=== PATIENT | female | born 1995 | race Caucasian/White ===

== ENCOUNTER → 2017-05-30 | Outpatient (CLI) | payer OTHER ==
[~2017-05-30] MED LIST: BCPILLS PO; BUSP5TAB59 PO; FLV1 PO; LXP/20 PO; MISCCAP80 PO; SULF500T36 PO
[2017-05-30 13:12] LABS: EOS % 1.2 %; EOS ABS # 0.04 K/uL (0-0.5); HEMATOCRIT 36.1 % (37-47); HEMOGLOBIN 12.7 g/dL (12.0-16.0); LYMPH % 45.1 %; LYMPH ABS # 1.52 K/uL (1.2-3.4); MEAN CELL VOLUME 92.3 fL (80-100); MEAN CORPUSCULAR HEMOGLOBIN 32.5 pg (25-34); MEAN CORPUSCULAR HGB CONC 35.2 g/dl (32-36); MEAN PLATELET VOLUME 9.3 fL (7.4-10.4); MONO % 7.4 %; MONO ABS # 0.25 K/uL (0.11-0.59); NEUT % 46.3 %; NEUT ABS # 1.56 K/uL (1.4-6.5); PLATELET COUNT 311 K/uL (130-400); RED CELL DISTRIBUTION WIDTH CV 12.6 % (11.5-14.5); RED CELL DISTRIBUTION WIDTH SD 42.1 fL (36.4-46.3); WHITE BLOOD COUNT 3.37 K/uL (4.8-10.8)
[2017-05-30 13:33] LABS: MONOSPOT NEG (NEG)
[2017-06-03 12:32] LABS: MICROSOMAL AB <1 IU/ML (<9)
== END | disposition home or self-care (01) ==
LOC: C.LAB 11:42
PROVIDERS: ATTEND Chiropractor
DX: Z79.1 Long term (current) use of non-steroidal anti-inflammatories (NSAID) (principal)

== ENCOUNTER 2024-05-18 20:25 | Inpatient (IN) ==
[2024-05-18] MEDS ORDERED: OXYTOCIN 30 UNITS/NSS 30 UNITS/500 ML BAG IV PRN (21:03)
[2024-05-18] MEDS ORDERED: LIDOCAINE 1% LOCAL 20 ML VIAL INFIL PRN (21:03)
[2024-05-18] MEDS: LACTATED RINGER'S 1,000 ML IV PRN (21:22)
[2024-05-18 21:28] LABS: Hematocrit (blood only) 35.5 % (37.0-47.0); Hemoglobin 12.6 g/dl (12.0-16.0); Mean Corpuscular Hemoglobin 33.3 pg (25.0-34.0); Mean Corpuscular Hgb Conc 35.5 g/dL (32.0-36.0); Mean Corpuscular Volume 93.9 fL (80.0-100.0); Mean Platelet Volume 10.7 fL (9.4-12.4); Platelet Count 205 K/uL (130-400); RDW Coefficient of Variation 14.2 % (11.5-14.5); RDW Standard Deviation 48.5 fL (36.4-46.3); Red Blood Count 3.78 M/uL (4.20-5.40); White Blood Count 9.22 K/ul (4.8-10.8)
--- NOTE | 2024-05-18 21:57 | Anesthesiology Consultation ---
Date of Service May 18, 2024 Assessment & Plan Chart Review Chart Review: Patient NOT seen in Pre Admission Testing and Acceptable Risk for Labor Epidural Consults Requested none ASA ASA2 Proposed Anesthesia Anesthesia Type: Labor Epidural Risk / Benefits Reviewed With: PT / POA / Parent / Guardian, Accepts Plan and Informed Consent Obtained History Height/Weight Height: 5 ft 8 in Weight: 81.193 kg Allergies Allergy/AdvReac Type Severity Reaction Status Date / Time No Known Allergies Allergy Verified 05/13/24 10:34 Medications Home Medications Medication Instructions Recorded Confirmed Last Taken escitalopram oxalate 20 mg tablet 10 mg PO DAILY 10/21/23 05/18/24 05/18/24 (Lexapro) [id number] PO 10/21/23 05/13/24 05/18/24 [ Plus] Active Medications Generic Name Dose Route Start Last Admin Trade Name Freq PRN Reason Stop Dose Admin Lactated Ringer's 1,000 mls @ 125 mls/hr 05/18/24 21:03 05/18/24 21:22 Lr IV 05/19/24 21:02 999 mls/hr .Q8H PRN Administration L&D Protocol Protocol NPO Date Last Intake of Fluids: 05/18/24 Time Last Intake of Fluids: 21:45 Date Last Intake of Solids: 05/18/24 Time Last Intake of Solids: 17:30 Past Medical History Medical History B12 deficiency Elevated ferritin level Varicella vaccination Depression Bleeding in early Irregular periods Fertility testing Oligomenorrhea Anxiety Ankylosing spondylitis Exercise / Class Metabolic Activity 1 > 8 Run/Swim/Ski/Tennis Past Family History Family History Father FH: malignant neoplasm of testis Grandfather (Maternal) No problems noted. Grandfather (Paternal) Colorectal cancer Grandmother (Paternal) Colorectal cancer Lung cancer Esophageal cancer Father Colon polyp, hyperplastic, Onset Age: 40 precancerous Denies family history of Ovarian cancer Breast cancer Past Surgical History Surgical History H/O wisdom tooth extraction Past Anesthesia History No Hx of Anesthesia Complications and No Family Hx of Anesthesia Complications History of PONV No Hx of PONV and No Hx of Motion Sickness Social History Smoking Status: Never smoker Do You Dip or Chew Tobacco: No Hx Alcohol Use: No Hx Substance Use: No Review of Systems ROS Unobtainable: All systems reviewed & are unremarkable except as noted in HPI & below Allergy / Immunological: no dyspnea Physical Exam Vital Signs Last Vital Signs Temp 36.7 C 05/18/24 20:55 Pulse 75 05/18/24 20:55 Resp 18 05/18/24 20:55 BP 130/79 05/18/24 20:55 ENMT Mouth: no TMJ abnormality Thyromental Distance: > or= 3.5 Finger Breadths Mallampati Class: II Neck normal visual inspection and trachea midline; neck extension not limited Respiratory normal respiratory effort Auscultation: lungs clear to auscultation bilaterally Cardiovascular Rate/Rhythm: regular rate and regular rhythm Heart Sounds: no murmur Musculoskeletal Spine: normal cervical ROM Extremities: full ROM of extremities Neurologic moves all extremities Psychiatric Orientation: alert and oriented x 3 Testing Laboratory Results 05/18/24 21:13
[2024-05-18] MEDS ORDERED: NALOXONE HCL 0.4 MG/1 ML VIAL/CARP IV PRN (21:59)
[2024-05-18] MEDS ORDERED: ROPIVACAINE 0.5% PF 5 MG/ML 20 ML VIAL EPI PRN (21:59)
[2024-05-18] MEDS ORDERED: BUPIVACAINE 0.25% PF 30 ML VIAL EPI PRN (21:59)
[2024-05-18] MEDS ORDERED: SODIUM CHLORIDE 0.9% PF INJ 10 ML VIAL EPI PRN (21:59)
[2024-05-18] MEDS ORDERED: ePHEDrine sulfate 50 MG/ML AMP IV PRN (21:59)
[2024-05-18] MEDS ORDERED: LIDOCAINE 2% MPF LOCAL 5 ML VIAL EPI PRN (21:59)
[2024-05-18] MEDS ORDERED: fentaNYL citrate PF 100 MCG/2 ML VIAL EPI STA (21:59)
[2024-05-18] MEDS ORDERED: LIDOCAINE 2%/EPINEPHRINE 1:200,000 20 ML PF EPI STA (21:59)
[2024-05-18] MEDS ORDERED: NALBUPHINE HCL INJ 10 MG/ML AMP IV PRN (21:59)
[2024-05-18] MEDS ORDERED: fentaNYL citrate PF 100 MCG/2 ML VIAL EPI PRN (21:59)
[2024-05-18] MEDS ORDERED: BUPIVACAINE 0.25% PF 30 ML VIAL EPI STA (21:59)
[2024-05-18] MEDS ORDERED: fentANYL 2 MCG/ML BUPIVacaine 0.125%-NSS 100ML BAG EPI PRN (21:59)
[2024-05-18] MEDS ORDERED: SODIUM CHLORIDE 0.9% PF INJ 10 ML VIAL EPI STA (21:59)
[2024-05-18] MEDS ORDERED: NALOXONE HCL 1 MG in SODIUM CHLORIDE 0.9% 1,000 ML IV PRN (21:59)
[2024-05-18] MEDS ORDERED: diphenhydrAMINE 50 MG/ML VIAL IV PRN (21:59)
[2024-05-18] MEDS: BUPIVACAINE 0.25% PF 30 ML VIAL ONE (22:18)
[2024-05-18] MEDS: fentANYL 2 MCG/ML BUPIVacaine 0.125%-NSS 100ML BAG ONE (22:18)
[2024-05-18] MEDS: LIDOCAINE 2%/EPINEPHRINE 1:200,000 20 ML PF ONE (22:19)
[2024-05-18] MEDS: ePHEDrine sulfate 50 MG/ML AMP ONE (22:19)
[2024-05-18] MEDS: SODIUM CHLORIDE 0.9% PF INJ 10 ML VIAL ONE (22:19)
[2024-05-18] MEDS: fentaNYL citrate PF 100 MCG/2 ML VIAL ONE (22:22)
[2024-05-19] MEDS: OXYTOCIN 30 UNITS/NSS 30 UNITS/500 ML BAG IV PRN (03:31)
--- NOTE | 2024-05-19 03:48 | Delivery Summary ---
Vaginal Delivery Summary Date of Service May 19, 2024 Vaginal Delivery Summary VAVD Operative vaginal delivery the patient had recurrent deep variable D cells with pushing she is making good process grafts and was baby was descending to +2 station however they were recurrent at this stage I offered intervention with vacuum assist patient agreed discussed risks bladder was drained using a straight catheter vacuum was applied over 1 contraction and baby's head was delivered a small midline episiotomy was performed to facilitate delivery once baby's head was born there was a loose nuchal cord that was passed over his head gentle traction on the baby no excessive force combined with maternal expulsive efforts resulted in delivery of the baby live vigorous male infant. Fluid was clear Cord gases were obtained by clamping and cutting the cord cord blood obtained placenta removed with traction IV Pitocin started the episiotomy was repaired with 3-0 Vicryl in the usual fashion sponge and instrument counts correct quantitative blood loss was 317 mL [facility] Vaginal Delivery Charge Delivery Type Details: VAVD
[2024-05-19 04:09] LABS: Base Excess Cord Venous Blood -5.3 mEq/L (-7.7-1.9); Cord Venous Blood HCO3 21 mmol/L (18.4-26.8); Cord Venous Blood PCO2 44 mmHg (30.4-57.2); Cord Venous Blood PO2 27 mmHg (14.1-43.3); Cord Venous Blood pH 7.29 (7.20-7.44); O2 Saturation Cord Venous Bld < 60.0 % (<68)
[2024-05-19 04:10] LABS: Base Excess Cord Arterial Bld -4.2 mEq/L (-9-1.8); CO2 Cord Arterial Blood 64 mmHg (39.1-73.5); HCO3 Cord Arterial Blood 25 mmol/L (19.7-28.5); Oxygen Sat Cord Arterial Blood < 60.0 % (<60); PO2 Cord Arterial Blood < 20 mmHg (4.1-31.7)
[2024-05-19] MEDS ORDERED: DIPHTHER/TETAN/PERTUS Vaccine (Tdap, Adol/Adult) 0.5mL IM ONE (04:51)
[2024-05-19] MEDS ORDERED: HYDROCORTISONE ACETATE 25 MG SUPP PR PRN (04:51)
[2024-05-19] MEDS: IBUPROFEN 600 MG TAB PO PRN (05:11)
[2024-05-19] MEDS: BENZOCAINE 20% SPRY 85 APPLN/85 GM CAN EXT PRN (05:11)
[2024-05-19] MEDS: PRENATAL VITAMIN 1 TAB PO SCH (07:57)
[2024-05-19] MEDS: DOCUSATE SODIUM 100 MG CAP PO SCH (07:57)
--- NOTE | 2024-05-19 08:27 | Anesthesia Procedure Note ---
Date of Service May 19, 2024 Anesthesia Post Epidural Note Vital Signs Vital Signs: Temp Pulse Resp BP Pulse Ox O2 Del Method 37.0 C 93 H 16 109/68 95 Room Air 05/19/24 06:15 05/19/24 06:15 05/19/24 06:15 05/19/24 06:15 05/19/24 06:15 05/19/24 06:15 Pain Intensity Bilateral Episiotomy/Laceration: Pain Intensity: 2 Notes Mental Status: alert / awake / arousable Nausea / Vomiting: adequately controlled Pain: adequately controlled Airway Patency, RR, SpO2: stable & adequate BP & HR: stable & adequate Hydration State: stable & adequate Neuraxial Anesthesia: was administered and sensory block is resolving Anesthetic Complications: no major complications apparent and Pt Satisfied with anesthetic care Epidural: Removed without complications and With tip intact
[2024-05-19] MEDS: ESCITALOPRAM OXALATE 10 MG TAB PO SCH (10:35)
[2024-05-19 18:31] VITALS: RESP 18
[2024-05-19] MEDS: ACETAMINOPHEN 325 MG TAB PO PRN (20:40)
[2024-05-19 22:15] VITALS: O2SAT 96
--- NOTE | 2024-05-20 06:12 | Obstetrical Progress Note ---
Date of Service <Jesi Toro MD - Last Filed: 05/20/24 06:41> May 20, 2024 Assessment & Plan <Jesi Toro MD - Last Filed: 05/20/24 06:41> (1) care and examination: Plan PPD#1: Stable. Rh+, gbs -, ri, vitals wnl, AM hgb pending Continue routine care, ambulation, and diet as tolerated Plan for DC later today <Guerline Garza MD - Last Filed: 05/20/24 07:36> (1) care and examination: Subjective <Jesi Toro MD - Last Filed: 05/20/24 06:41> Patient is a 29yo female who is PPD#1 following VAVD at 38 weeks. Mild abd pain/cramping, well managed on analgesics Voiding w/o issue Tolerating meals, no n/v Ambulating normally + passing gas Having appropriate lochia Planning for exclusive . Constitutional: no fever, no chills or no sweats Respiratory: no dyspnea Cardiovascular: no chest pain, no palpitations or no calf pain Breast: no breast pain Gastrointestinal: no nausea or no vomiting Genitourinary (female): no dysuria Neurologic: no headache(s) no changes in vision, no headaches Physical Exam <Jesi Toro MD - Last Filed: 05/20/24 06:41> General: Alert, oriented. No acute distress. Cardiac: Regular rate and rhythm, no murmurs, rubs, or gallops. Respiratory: Clear to auscultation bilaterally. No increased work of breathing. Symmetrical chest rise. No respiratory distress. Abdomen: Soft, nontender, nondistended. Bowel sounds present. Uterus: Uterine fundus firm, nontender, palpable 1 cm below the umbilicus. Lower extremities: No lower extremity edema or swelling. No deep calf pain. Results & Data <Jesi Toro MD - Last Filed: 05/20/24 06:41> Vital Signs (Past 12 Hours) Vital Signs Temp Pulse Resp BP Pulse Ox O2 Del Method 05/19/24 23:20 36.8 C 82 18 108/64 Room Air 05/19/24 20:30 36.5 C 82 18 115/73 96 Room Air Supervising Physician <Guerline Garza MD - Last Filed: 05/20/24 07:36> Co-Signing Physician Notes Resident Physician Supervision Note: I interviewed and examined the patient. Discussed with Dr. Toro and agree with findings and plan as documented in the note. Any exceptions or clarifications are listed here: PP1 s/p , doing well. VSS, exam benign and wnl. Desires dc today Documented By: Guerline Garza MD Resident Activity Tracking <Jesi Toro MD - Last Filed: 05/20/24 06:41> Resident Involvement: Resident Care Provided Care Provided: Adult Hospital Medicine
[2024-05-20 06:41] LABS: Hemoglobin 9.1 g/dl (12.0-16.0); Mean Corpuscular Volume 94.2 fL (80.0-100.0); Mean Platelet Volume 10.2 fL (9.4-12.4); Platelet Count 173 K/uL (130-400); RDW Coefficient of Variation 14.5 % (11.5-14.5); RDW Standard Deviation 48.7 fL (36.4-46.3); Red Blood Count 2.76 M/uL (4.20-5.40); White Blood Count 9.78 K/ul (4.8-10.8)
[2024-05-20] MEDS: bisacodyL 5 MG TABEC PO SCH (20:41)
[2024-05-21] MEDS ORDERED: bisacodyL 10 MG SUPP PR PRN
[2024-05-21 01:34] VITALS: BP 129/83; PULSE 89; TEMP 98.2
--- NOTE | 2024-05-21 06:26 | Obstetrical Progress Note ---
Date of Service <Jesi Toro MD - Last Filed: 05/21/24 07:07> May 21, 2024 Assessment & Plan <Jesi Toro MD - Last Filed: 05/21/24 07:07> (1) care and examination: Plan PPD#2: Stable. Rh+, gbs -, ri, vitals wnl, AM hgb pending (9.1 yesterday) Continue routine care, ambulation, and diet as tolerated Plan for DC later today <Genesis Ng MD, FACOG - Last Filed: 05/21/24 07:19> (1) care and examination: Subjective <Jesi Toro MD - Last Filed: 05/21/24 07:07> Patient is a 29yo female who is PPD#2 following VAVD at 38 weeks. She is having minimal pain, well managed on analgesics; voiding, eating, drinking w/o issue; passing gas, +BM; lochia minimal, diminishing; ambulating normally Discharge planned for yesterday, but was unable to go home d/t baby not feeding/latching well. Says he is doing better this morning Constitutional: no fever, no chills or no sweats Respiratory: no dyspnea Cardiovascular: no chest pain, no palpitations or no calf pain Breast: no breast pain Gastrointestinal: no nausea or no vomiting Genitourinary (female): no dysuria Neurologic: no headache(s) Physical Exam <Jesi Toro MD - Last Filed: 05/21/24 07:07> General: Alert, oriented. No acute distress. Cardiac: Regular rate and rhythm, no murmurs, rubs, or gallops. Respiratory: Clear to auscultation bilaterally. No increased work of breathing. Symmetrical chest rise. No respiratory distress. Abdomen: Soft, nontender, nondistended. Bowel sounds present. Uterus: Uterine fundus firm, nontender, palpable 1 cm below the umbilicus. Lower extremities: No lower extremity edema or swelling. No deep calf pain. Results & Data <Jesi Toro MD - Last Filed: 05/21/24 07:07> Vital Signs (Past 12 Hours) Vital Signs Temp Pulse Resp BP O2 Del Method 05/20/24 23:20 36.8 C 89 18 129/83 Room Air 05/20/24 20:20 37.2 C 84 18 126/74 Room Air Supervising Physician <Genesis Ng MD, FACOG - Last Filed: 05/21/24 07:19> Co-Signing Physician Notes Resident Physician Supervision Note: I interviewed and examined the patient. Discussed with Dr. Toro and agree with findings and plan as documented in the note. Any exceptions or clarifications are listed here: Patient stayed overnight because baby was having some latching issues. this seems to be resolved and will d/c home today. Instructions given. Documented By: Genesis Ng MD, FACOG Resident Activity Tracking <Jesi Toro MD - Last Filed: 05/21/24 07:07> Resident Involvement: Resident Care Provided Care Provided: Adult Hospital Medicine
[2024-05-21 10:27] LABS: Hematocrit (blood only) 29.2 % (37.0-47.0); Hemoglobin 10.1 g/dl (12.0-16.0)
== END 2024-05-21 12:00 | disposition home or self-care (01) | DRG 807 ==
LOC: OPB 20:25 → 4S1 20:28 → 4E1 05-19 06:25